=== PATIENT | female | born 1990 | race Caucasian/White ===

== ENCOUNTER 2018-04-16 15:31 | Emergency (ER) | payer OTHER ==
[~2018-04-16] VITALS: Ht 154.9 cm; Wt 50.8 kg
== END 2018-04-16 18:52 | disposition home or self-care (01) ==
LOC: ER 15:31
DX: N93.8 Other specified abnormal uterine and vaginal bleeding (principal)

== ENCOUNTER → 2018-05-06 12:17 | Outpatient (CLI) | payer OTHER | END | disposition home or self-care (01) | LOC: LAB 12:17 | DX: O02.1 Missed abortion (principal) ==

== ENCOUNTER 2018-05-06 12:39 | Outpatient (CLI) | payer OTHER | END 2018-05-06 12:51 | disposition home or self-care (01) | LOC: SONOGRAMA 12:39 | DX: O02.1 Missed abortion (principal) ==